=== PATIENT | male | born 1995 | race Caucasian/White ===

== ENCOUNTER 2016-11-03 15:32 | Emergency (ER) | payer OTHER ==
[2016-11-03 15:37] VITALS: RESP 16; O2SAT 95
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
[2016-11-03 16:47] VITALS: BP 127/65; PULSE 79; TEMP 98.8
== END 2016-11-03 16:47 | disposition home or self-care (01) ==
DX: S62.326A Displaced fracture of shaft of fifth metacarpal bone, right hand, initial encounter for closed fracture (principal); F17.200 Nicotine dependence, unspecified, uncomplicated; W22.8XXA Striking against or struck by other objects, initial encounter